=== PATIENT | female | born 1950 | race Caucasian/White ===

== ENCOUNTER 2017-11-19 08:31 | Day surgery (SDC) | payer OTHER, SELFPAY ==
[2017-11-19] VITALS (8 sets, daily range): BP systolic 115–139; BP diastolic 68–76; PULSE 58–65; RESP 10–20; TEMP 36–36.6; O2SAT 97–100; BMI 21.9
[2017-11-19] MEDS: SODIUM CHLORIDE 0.9% 1,000 ML 100 ML IV (08:45)
--- NOTE | 2017-11-19 09:51 | PM.HP.1 ---
History of Present Illness Date Patient Seen: 11/19/17 Time Patient Seen: 09:51 Chief complaint: colonoscopy [id number] Narrative: Screening colonoscopy Patient History Medical History Chronic back pain (Chronic) Hypertension (Chronic) Osteoporosis (Chronic) Raynaud's syndrome (Chronic) History of vertebral fracture (Resolved Unknown) Polycystic kidney disease (Resolved ~1984) Surgical History History of nephrectomy (Resolved ~1984) Family & Social History Family History: Reviewed 11/19/17 by Edwina Candelaria MD Social History: household members spouse Tobacco & Substance use: Smoking Status Never smoker alcohol intake current Meds Home Medications Medication Instructions Recorded Confirmed Type Multivitamin 1 tab PO .QDAY 10/15/17 10/15/17 History amlodipine 5 mg tablet 5 mg PO QDAY #90 tab 10/15/17 Rx risedronate 35 mg tablet,delayed 35 mg PO QWEEK #12 tab 10/15/17 Rx release Allergies Allergy/AdvReac Type Severity Reaction Status Date / Time No Known Drug Allergies Allergy Verified 10/15/17 08:34 Exam Vital Signs (past 8 hours): - Oropharynx: Free of lesions Chest: Clear to auscultation percussion Cardiac exam: No S3 or murmur 11/19/17 08:47 Temperature 97.4 F L Pulse Rate 65 Respiratory Rate 15 Blood Pressure 132/75 Pulse Oximetry 100 Oxygen Delivery Method Room Air Assessment & Plan Plan: Assessment/Plan Narrative: Need for 10 year interval screening colonoscopy.
[2017-11-19] MEDS: MIDAZOLAM 5 MG/5 ML VIAL IV (10:07)
[2017-11-19] MEDS: fentaNYL 250 MCG/5 ML INJ IV (10:08)
--- NOTE | 2017-11-19 10:10 | PM.OP.ENDO ---
Operative Date/Time/Diagnoses Date of procedure: 11/19/17 Time of procedure: 10:10 Pre-op diagnosis: See indications Post-op diagnosis: same Procedure & Clinicians Study performed: Colonoscopy Same procedure as scheduled: Yes Indications: Screening Surgeon: Edwina Candelaria Procedure Notes Procedure in detail: After informed consent was obtained the patient was placed in left lateral decubitus position. The video colonoscope was introduced in the rectum slowly advanced cecum. Preparation was good. On slow withdrawal mucosa was carefully examined. The scope was removed. The patient tolerated the procedure well. Blood loss none Complications none Sedation Fentanyl 100 mcg Versed 3 mg IV titration Total sedation time 17 min Findings 1. Normal colonoscopy to cecum Patient does have the history of very elderly relative with a rectal polyp. Follow-up colonoscopy could be recommended at 5 years or at 10 years.
== END 2017-11-19 11:08 | disposition home or self-care (01) ==
PROVIDERS: PCP Physician Assistant; Visit Provider Internal Medicine Gastroenterology
PROC: 0DJD8ZZ Inspection of Lower Intestinal Tract, Via Natural or Artificial Opening Endoscopic (ICD-10-PCS; CPT 45378; principal; 2017-11-19 09:30)
DX: Z12.11 Encounter for screening for malignant neoplasm of colon (principal); Z83.71 Family history of colonic polyps
CPT/HCPCS: G0105; J2250; J3010

== ENCOUNTER → 2017-12-02 07:19 | Outpatient (CLI) | payer OTHER, SELFPAY ==
[2017-12-02 10:16] LABS: Alanine Aminotransferase 22 IU/L (9-52); Albumin 4.1 g/dL (3.5-5.0); Albumin Globulin Ratio 1.3 (1.0-2.8); Alkaline Phosphatase 67 U/L (38-126); Aspartate Aminotransferase 24 IU/L (14-36); BUN Creatinine Ratio 22.9 (6-22); Bilirubin Total 0.6 mg/dL (0.2-1.3); Blood Urea Nitrogen 16 mg/dL (7-17); Calcium 9.2 mg/dL (8.4-10.2); Carbon Dioxide 30 mmol/L (22-32); Chloride 103 mmol/L (98-107); Estimated Glomerular Filt Rate > 60.0 mL/min (>60); Globulin 3.1 g/dL (1.7-4.1); Glucose 101 mg/dL (80-110); HEMOLYSIS < 15 (0-50); Potassium 3.8 mmol/L (3.4-5.1); Sodium 143 mmol/L (137-145); Total Protein 7.2 g/dL (6.3-8.2)
[2017-12-02 10:46] LABS: Microalbumin Urine Random 1.4 mg/dL (0-1.6)
[2017-12-02 10:47] LABS: Creatinine Urine Random 92.3 mg/dL; Microalbumi Creatinin Ratio Ur 15.1 ug/mg CR (<30)
[2017-12-02 10:58] LABS: Vitamin D 25 Hydroxy (D3) 47.3 ng/mL (30.0-100.0)
== END ==
PROVIDERS: PCP Physician Assistant; Visit Provider Physician Assistant
DX: I83.93 Asymptomatic varicose veins of bilateral lower extremities (principal)
CPT/HCPCS: 36415; 80053; 82043; 82306; 82570

== ENCOUNTER → 2017-12-03 08:29 | Outpatient (CLI) | payer OTHER, SELFPAY ==
--- NOTE | 2017-12-03 23:36 | DI.MG.S_ITS ---
Patient Name: JAYDE TAM date: 1950 Sex: F Attending Physician: Abner Indications: Date: 12/03/2017 08:37 At the request of: HEIDY STEVE Procedure: MM screening mammo BI BILATERAL DIGITAL SCREENING MAMMOGRAM 3D/2D WITH CAD: 12/03/2017 CLINICAL: Routine screening. Comparison is made to exams dated: 11/13/2016 mammogram, 08/16/2015 mammogram, and 08/01/2014 mammogram - [facility]. The tissue of both breasts is extremely dense, which lowers the sensitivity of mammography. Current study was also evaluated with a Computer Aided Detection (CAD) system. There are benign vascular calcifications in both breasts. No significant masses, calcifications, or other findings are seen in either breast. There has been no significant interval change. IMPRESSION: There is no mammographic evidence of malignancy. A 1 year screening mammogram is recommended.(12/04/2018) This exam was interpreted at Station ID: [id number]. NOTE: For mammograms, a report in lay terms will be sent to the patient. Approximately 15% of breast malignancies will not be visualized mammographically. In the management of a palpable breast mass, a negative mammogram must not discourage biopsy of a clinically suspicious lesion. Electronically Signed By: Juan leach/[email or web address]:12/03/2017 23:39:36 letter sent: Normal Exam ACR BI-RADS Category 2: Benign Finding(s) 3342F Continued Report - Page 2 of 2 Patient Name: JAYDE TAM date: 1950 Sex: F Attending Physician: Abner Indications: Date: 12/03/2017 08:37 At the request of: HEIDY STEVE Procedure: MM screening mammo BI
== END ==
PROVIDERS: PCP Physician Assistant; Visit Provider Physician Assistant
DX: Z12.31 Encounter for screening mammogram for malignant neoplasm of breast (principal)
CPT/HCPCS: 77063; 77067

== ENCOUNTER → 2018-05-14 08:25 | Outpatient (CLI) | payer OTHER, SELFPAY ==
[2018-05-14 09:03] LABS: BUN Creatinine Ratio 21.4 (6-22); Blood Urea Nitrogen 15 mg/dL (7-17); Calcium 9.1 mg/dL (8.4-10.2); Carbon Dioxide 29 mmol/L (22-32); Chloride 104 mmol/L (98-107); Estimated Glomerular Filt Rate > 60.0 mL/min (>60); Glucose 88 mg/dL (80-110); HEMOLYSIS < 15 (0-50); Potassium 3.7 mmol/L (3.4-5.1); Sodium 141 mmol/L (137-145)
== END ==
PROVIDERS: PCP Physician Assistant; Visit Provider Physician Assistant
DX: I10 Essential (primary) hypertension (principal)
CPT/HCPCS: 36415; 80048

== ENCOUNTER → 2018-12-07 07:07 | Outpatient (CLI) | payer OTHER, SELFPAY ==
[2018-12-07 08:57] LABS: Alanine Aminotransferase 15 IU/L (9-52); Albumin 4.3 g/dL (3.5-5.0); Albumin Globulin Ratio 1.3 (1.0-2.8); Alkaline Phosphatase 61 U/L (38-126); Aspartate Aminotransferase 30 IU/L (14-36); BUN Creatinine Ratio 16.3 (6-22); Bilirubin Total 0.7 mg/dL (0.2-1.3); Blood Urea Nitrogen 13 mg/dL (7-17); Calcium 9.3 mg/dL (8.4-10.2); Carbon Dioxide 30 mmol/L (22-32); Chloride 103 mmol/L (98-107); Estimated Glomerular Filt Rate > 60.0 mL/min (>60); Globulin 3.3 g/dL (1.7-4.1); Glucose 90 mg/dL (80-110); HEMOLYSIS < 15 (0-50); Sodium 142 mmol/L (137-145); Total Protein 7.6 g/dL (6.3-8.2)
[2018-12-07 09:09] LABS: Vitamin D 25 Hydroxy (D3) 33.7 ng/mL (30.0-100.0)
== END ==
PROVIDERS: PCP Physician Assistant; Visit Provider Physician Assistant
DX: I10 Essential (primary) hypertension (principal); M81.0 Age-related osteoporosis without current pathological fracture
CPT/HCPCS: 36415; 80053; 82306

== ENCOUNTER → 2018-12-15 09:13 | Outpatient (CLI) | payer OTHER, SELFPAY ==
--- NOTE | 2018-12-15 | DI.MG.S_ITS ---
BILATERAL DIGITAL SCREENING MAMMOGRAM 3D/2D WITH CAD: 12/15/2018 CLINICAL: Routine screening. Comparison is made to exams dated: 12/03/2017 mammogram, 11/13/2016 mammogram, and 08/16/2015 mammogram - [facility]. The tissue of both breasts is extremely dense, which lowers the sensitivity of mammography. Current study was also evaluated with a Computer Aided Detection (CAD) system. There are benign vascular calcifications in both breasts. No significant masses, calcifications, or other findings are seen in either breast. There has been no significant interval change. IMPRESSION: There is no mammographic evidence of malignancy. A 1 year screening mammogram is recommended. This exam was interpreted at Station ID: [id number]. NOTE: For mammograms, a report in lay terms will be sent to the patient. Approximately 15% of breast malignancies will not be visualized mammographically. In the management of a palpable breast mass, a negative mammogram must not discourage biopsy of a clinically suspicious lesion. Electronically Signed By: William reyes/[email or web address]:12/15/2018 09:44:53 letter sent: Normal Exam ACR BI-RADS Category 2: Benign Finding(s) 3342F
== END ==
PROVIDERS: PCP Physician Assistant; Visit Provider Physician Assistant
DX: Z12.31 Encounter for screening mammogram for malignant neoplasm of breast (principal); M81.0 Age-related osteoporosis without current pathological fracture; Z78.0 Asymptomatic menopausal state; I10 Essential (primary) hypertension; Z82.62 Family history of osteoporosis
CPT/HCPCS: 77063; 77067; 77080

== ENCOUNTER → 2019-10-08 07:08 | Outpatient (CLI) | payer OTHER, SELFPAY ==
[2019-10-08 08:33] LABS: BUN Creatinine Ratio 16.9 (6-22); Blood Urea Nitrogen 12 mg/dL (7-17); Calcium 9.4 mg/dL (8.4-10.2); Carbon Dioxide 30 mmol/L (22-32); Chloride 106 mmol/L (98-107); Estimated Glomerular Filt Rate > 60.0 mL/min (>60); Glucose 87 mg/dL (80-110); HEMOLYSIS < 15 (0-50); Sodium 139 mmol/L (137-145)
[2019-10-08 10:24] LABS: Microalbumi Creatinin Ratio Ur 23.1 ug/mg CR (<30); Microalbumin Urine Random 1.9 mg/dL (0-1.6)
== END ==
PROVIDERS: PCP Nurse Practitioner Family; Referring Provider Nurse Practitioner Family; Visit Provider Nurse Practitioner Family
DX: I10 Essential (primary) hypertension (principal)
CPT/HCPCS: 36415; 80048; 82043; 82570

== ENCOUNTER → 2020-12-22 10:37 | Outpatient (CLI) | payer MEDICARE, SELFPAY | PROVIDERS: PCP Nurse Practitioner; Referring Provider Nurse Practitioner; Visit Provider Nurse Practitioner | DX: M81.0 Age-related osteoporosis without current pathological fracture (principal); Z13.820 Encounter for screening for osteoporosis; Z78.0 Asymptomatic menopausal state; Z82.62 Family history of osteoporosis | CPT/HCPCS: 77080 ==

== ENCOUNTER → 2021-09-13 14:41 | Outpatient (CLI) | payer MEDICARE, SELFPAY ==
--- NOTE | 2021-09-13 | DI.MG.S_ITS ---
BILATERAL DIGITAL SCREENING MAMMOGRAM 3D/2D WITH CAD: 09/13/2021 CLINICAL: Routine screening. Comparison is made to exams dated: 12/15/2018 mammogram, 12/03/2017 mammogram, 11/13/2016 mammogram - [facility], and 04/04/2020 mammogram - Outside facility. The tissue of both breasts is extremely dense, which lowers the sensitivity of mammography. Current study was also evaluated with a Computer Aided Detection (CAD) system. There are benign vascular calcifications in both breasts. No significant masses, calcifications, or other findings are seen in either breast. There has been no significant interval change. IMPRESSION: BENIGN There is no mammographic evidence of malignancy. A 1 year screening mammogram is recommended. Based on the Tyrer Cuzick model (a risk assessment model) the patient's lifetime risk is 7.4% and her 10 year risk is 6.1%. According to the ACR, ACS, and NCCN guidelines, an annual breast MRI exam along with mammogram is recommended if the patient's lifetime risk is 20% or greater. This exam was interpreted at Station ID: [id number]. NOTE: For mammograms, a report in lay terms will be sent to the patient. Approximately 15% of breast malignancies will not be visualized mammographically. In the management of a palpable breast mass, a negative mammogram must not discourage biopsy of a clinically suspicious lesion. Electronically Signed By: Esvin Blunt M.D., jr/rupesh:09/14/2021 10:09:10 letter sent: Normal Exam ACR BI-RADS Category 2: Benign Finding(s) 3342F
== END ==
PROVIDERS: PCP Nurse Practitioner; Referring Provider Nurse Practitioner; Visit Provider Nurse Practitioner
DX: Z12.31 Encounter for screening mammogram for malignant neoplasm of breast (principal)
CPT/HCPCS: 77063; 77067